=== PATIENT | male | born 1990 | race Caucasian/White ===

== ENCOUNTER 2017-09-01 05:45 | Day surgery (SDC) | payer OTHER ==
[~2017-09-01] VITALS: Ht 195.6 cm; Wt 92.1 kg
--- NOTE | 2017-09-01 09:14 | NUR ---
09/01/17 0914 Belen De La Paz 0901 PATIENT ARRIVES TO PACU UNRESPONSIVE TO PAIN OR VERBAL STIMULI. RESP EVEN AND UNLABORED, OCCASIONALLY REQUIRES JAW THRUST. NC AT 4 LITERS.
--- NOTE | 2017-09-01 09:37 | NUR ---
PT IS BACK TO FROM PACU. HE IS ACCOMPANIED BY [employer]. HE DENIES WANTING ANYTHING TO SNACK ON, ONLY ICE WATER. NO OTHER C/O'S AT THIS TIME. WILL REASSES WITHIN THE HOUR.
[2017-09-01] MEDS ORDERED: ULTRAM50 MG PO (09:51)
[2017-09-01] MEDS ORDERED: NORCO 5-325 TA1 EACH PO (09:51)
--- NOTE | 2017-09-01 10:41 | NUR ---
PT RESTING, DENIES PAIN AND NAUSEA. DRINKING WATER, WARM BLANKET APPLIED. WILL REASSESS WITHIN THE HOUR.
--- NOTE | 2017-09-01 11:00 | NUR ---
[employer] [facility] COMES TO NURSES STATION INFORM RN THAT PT IS FEELING NAUSEOUS AND WAS GIVEN AN EMESIS BAG. PT IS GIVEN AN ALCOHOL PREP PAD WELL 7UP TO HELP REDUCE NAUSEA. PT REPORTS THAT HE STARTS TO GET DIZZY AND NAUSEOUS WHEN HE LIFTS HIS HEAD. HE IS EDUCATED THAT HE MAY FEEL DIZZY OFF AND ON THE REST OF THE DAY DUE TO MEDICATIONS HE RECIEVED DURING SURGERY. WILL REASSESS AND CONTINUE TO MONITOR.
--- NOTE | 2017-09-01 11:44 | NUR ---
PT REPORTS STILL FEELING NAUSEOUS, HE IS GIVEN 4MG IV ZOFRAN. OFFICERS STILL AT BEDSIDE. PT REPORTS SOME FEELING RETURNING TO HIS RIGHT LEG. WILL REASSESS WITHIN THE HOUR.
--- NOTE | 2017-09-01 13:02 | NUR ---
LE 1242: PT UP TO THE BS TO VOID. PT VOIDS 500 ML DARK YELLOW URINE. PT REPORTS HIS NAUSEA FEELS BETTER. PT DRESSES HIMSELF IN PRESENCE OF THE OFFICERS AND TRANSFERS HIMSELF TO WC. DC INSTRUCTIONS GIVEN AND PT VERBALIZES UNDERSTANDING.
--- NOTE | 2017-09-02 13:22 | OR ---
[facility] [address], [place] [address] Signed DATE OF OPERATION: 09/01/2017 SURGEON: Ady Sultana MD PREOPERATIVE DIAGNOSIS: ACL rupture, right knee. POSTOPERATIVE DIAGNOSIS: ACL rupture, right knee. PROCEDURE PERFORMED: ACL reconstruction with allograft [id number]. ANESTHESIA: General. SPECIMENS AND COMPLICATIONS: There were no specimens or complications. TOURNIQUET TIME: Tourniquet time was just about an hour. WHAT WAS DONE: The patient was taken to the operating room. After anesthesia was induced and airway secured, the patient was positioned, prepped and draped in the routine sterile fashion. Meanwhile on the back table, a [id number] allograft had previously been defrosted. It was then cut and shaped, so that it was a 10 x 25 mm bone plugs on either end with an intervening 10 mm soft tissue graft. An ACL tightrope was placed in one of the bone blocks and the other #5 FiberWire, it was then left to soak in saline, it the was then examined and exsanguinated with an Esmarch bandage. The arthroscope was inserted through the standard anterolateral portal. Diagnostic arthroscopy revealed an unremarkable suprapatellar pouch, patellofemoral joint, medial recess, medial compartment, lateral compartment, lateral recess. The patient had a completely torn ACL. The PCL appeared unremarkable. A VAPR electrosurgical device was introduced through an anteromedial portal and the remnants of the ACL and stumps were removed. We then used the VAPR to remove. The soft tissue off the ACL footprint on the tibial side as well as the lateral wall and the apex of the notch on the femoral side. We then used a bur to do a generous notchplasty on the femoral side. 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 We then used a 10 mm FlipCutter to cut a 10 x 25 mm channel. We then passed a fiber stick down the guide channel and grabbed it and brought out of the lateral portal and secured it back to itself. Then put the scope back in the anterolateral portal used the tibial aiming guide to advance a guide pin through the old ACL footprint, keeping well posterior. This was then overdrilled with a 10 mm cannulated drill. We then used a grasper and the VAPR to clean the aperture into the tibial tunnel. Once this been accomplished to reach up the tibial tunnel, grabbed the FiberStick and pulled down the tibial tunnel. The tibial tunnel was then used to deliver the tightrope sutures up the tibia across the knee and out the femoral tunnel. I then by pulling on them were able to deliver both the tightrope and the graft into position. We attention the femoral side using the tightrope and used a small Molena elevator to ensure we were down on the bone of the lateral femoral condyle. We then put tension on the graft cycled the knee about 35 times and then while holding a tensioned and operating a little posterior drawer movement on the knee, we secured it distally with an 8 x 28 mm BioScrew. At this point, the patient had negative Lawrence. The knee was irrigated and drained. The portals were closed. Sterile dressing and a T scope brace were placed. He was awakened and taken to the recovery room, where he arrived in stable condition. Counts were correct and antibiotic protocols were followed. 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
== END 2017-09-01 13:00 | disposition home or self-care (01) ==
LOC: OPS 05:45 → DS 05:45 → OPS 06:45
PROVIDERS: Orthopaedic Surgery
PROC: 0MRN4KZ Replacement of Right Knee Bursa and Ligament with Nonautologous Tissue Substitute, Percutaneous Endoscopic Approach (ICD-10-PCS; principal; 2017-09-01 06:45)
DX: S83.511A Sprain of anterior cruciate ligament of right knee, initial encounter (principal); X58.XXXA Exposure to other specified factors, initial encounter
CPT/HCPCS: 01320; 64447; 64448; 76942; C1713; C1762; J0690; J1100; J1885; J2250; J2405; J2704; J2795; J3010; J7120